=== PATIENT | female | born 1945 | race Hispanic/Latino ===

== ENCOUNTER 2017-02-22 09:06 | Outpatient (CLI) | payer MEDICARE ==
--- NOTE | 2017-02-22 11:57 | Mammography Report ---
BONE DEXA:02/22/17 10:30:00 CLINICAL: Postmenopausal. No comparison. TECHNIQUE: Two site bone DEXA performed on an Hologic scanner. FINDINGS: The average BMD of the lumbar spine L1-L4 is 1.003g/cm squared with a T-score of -0.4 and a Z-score of +1.8. The average BMD of the left hip is 0.788g/cm squared with a T-score of -1.3 and a Z-score of +0.3. The femoral neck BMD is 0.627g/cm squared with a T score of -2.0 and a Z score of -0.1.. IMPRESSION: 1. WHO classification: Normal with average fracture risk based on lumbar spine measurements. 2. WHO classification: Osteopenia with increased fracture risk based on left femoral neck measurements. 3. The FRAX 10 year fracture probability for a major osteoporotic fracture is 11.0%. 4. The FRAX 10 year fracture probability for hip fracture is 2.0%. Note: FRAX version 3.01. Fracture probability calculated for an untreated patient. Fracture probability may be lower if the patient has received treatment. RECOMMENDATION: Clinical correlation and routine screening. DEFINITIONS: BMD = Bone Mineral Density T-score = BMD related to mean peak bone mass of young adult (mean expressed in Standard Deviation) Z-score = Age matched BMD expressed in SD World Health Organization (WHO) Diagnostic Criteria Normal T-score > -1 SD Osteopenia T-score between -1 and -2.4 SD Osteoporosis T-score -2.5 SD or below NOTE: BMD is not the only risk factor for fracture; also consider factors such as the patient's age, risk of falling, previous osteoporotic fracture, family history of osteoporotic fractures, current smoker, and low body weight. All treatment decisions require clinical judgment and consideration of individual patient factors, including patient preferences, comorbidities, previous drug use and risk factors not captured in the FRAX model (e.g. frailty, falls, vitamin D deficiency, increased bone turnover, interval significant decline in BMD). Fracture probability is calculated for an untreated patient. Fracture probability may be lower if the patient has received treatment. Z-scores are not calculated if >80 years of age.
--- NOTE | 2017-02-22 15:34 | Mammography Report ---
BILATERAL DIGITAL SCREENING MAMMOGRAM with CAD: 02/22/17 09:06:00 CLINICAL: Routine screening. COMPARISON:12/16/15 FINDINGS: There are scattered areas of fibroglandular density. No mass, architectural distortion or suspicious calcifications. IMPRESSION: No mammographic evidence of malignancy. BI-RADS CATEGORY: 2 -- Benign RECOMMENDATION: Routine mammographic screening in one year. COMMENT: Patient follow-up letters are generated by our [employer] application.
== END 2017-02-22 09:07 | disposition home or self-care (01) ==
LOC: MAMMO 09:06
PROVIDERS: ATTEND Internal Medicine
DX: Z12.31 Encounter for screening mammogram for malignant neoplasm of breast (principal); M85.88 Other specified disorders of bone density and structure, other site; Z78.0 Asymptomatic menopausal state
CPT/HCPCS: 77080; G0202; 77067

== ENCOUNTER 2019-01-16 07:24 | Day surgery (SDC) | payer MEDICARE ==
[2019-01-16] MEDS ORDERED: SODIUM CHLORIDE 0.9% 500 ML 500 ML IV SCH (08:00)
[2019-01-16 08:12] LABS: Basophils % (Auto) 0.4 % (0.0-1.8); Eosinophils # (Auto) 0.1 K/mm3 (0.0-0.4); Eosinophils % (Auto) 1.6 % (0.0-4.3); Hematocrit 48.8 % (30.3-42.9); Hemoglobin 15.8 gm/dl (10.1-14.3); Lymphocytes # (Auto) 1.3 K/mm3 (1.2-5.4); Lymphocytes % (Auto) 25.8 % (13.4-35.0); Mean Corpuscular HGB Conc 32 % (30-34); Mean Corpuscular Volume 99 fl (79-97); Monocytes # (Auto) 0.4 K/mm3 (0.0-0.8); Monocytes % (Auto) 8.4 % (0.0-7.3); Platelet Count 174 K/mm3 (140-440); Red Blood Count 4.93 M/mm3 (3.65-5.03); Red Cell Distribution Width 15.8 % (13.2-15.2)
[2019-01-16] MEDS ORDERED: methylPREDNISolone Sod Succinate 125 MG/2 ML INJ IV NR (08:15)
[2019-01-16 08:29] LABS: INR 0.94 (0.87-1.13)
[2019-01-16 08:45] LABS: BUN/Creatinine Ratio 23; Blood Urea Nitrogen 14 mg/dL (7-17); Calcium 8.8 mg/dL (8.4-10.2); Hemolysis Index 13
[2019-01-16] MEDS ORDERED: diphenhydrAMINE 50 MG/ML VIAL IV ONE (09:00)
[2019-01-16] MEDS ORDERED: FAMOTIDINE 20 MG/2 ML INJ IV ONE (09:00)
[2019-01-16] MEDS ORDERED: HEPARIN/NS 5000 UNIT/500ML 1,000 ML IR ONE (09:59)
[2019-01-16] MEDS: LIDOCAINE (2%) 20 MG/1 ML VIAL 20 ML MDV INFILTRATI ONE ×2 (10:19→10:27)
[2019-01-16] MEDS: MIDAZOLAM 2 MG/2 ML INJ ONE ×2 (10:19→10:24)
[2019-01-16] MEDS: fentaNYL 100 MCG/2 ML INJ ONE ×2 (10:19→10:24)
[2019-01-16] MEDS: VERAPAMIL 5 MG/2 ML INJ ONE ×2 (10:20→10:29)
[2019-01-16] MEDS: HEPARIN 10,000 UNITS/10 ML VIAL ONE ×2 (10:20→10:29)
[2019-01-16] MEDS: NITROGLYCERIN SYRINGE 3 ML ONE ×2 (10:21→10:29)
[2019-01-16] MEDS ORDERED: traMADol 50 MG TAB PO PRN (10:55)
--- NOTE | 2019-01-16 10:58 | Short Stay Summary ---
Short Stay Documentation Date of service: 01/16/19 - History H&P: obtained from office - Allergies and Medications Current Medications: Allergies shellfish derived Allergy (Severe, Verified 01/17/17 11:30) ANAPHYLACTIC Home Medications Medication Instructions Recorded Confirmed Last Taken Type Aspirin [Adult Aspirin] 81 mg PO DAILY 01/16/19 01/16/19 01/16/19 08:21 History [place]-3 Fatty Acids/Fish Oil [Fish 1,000 mg PO DAILY 01/16/19 01/16/19 01/15/19 History Oil] dilTIAZem [CarDIZEM] 30 mg PO BID 01/16/19 01/16/19 01/15/19 History Active Medications Sodium Chloride (Nacl 0.9% 500 Ml) 500 mls @ 50 mls/hr IV DIRECT ANNIKA Stop: 01/16/19 17:59 Last Admin: 01/16/19 08:53 Dose: 50 mls/hr Documented by: Methylprednisolone Sodium Succinate (Solu-Medrol) 125 mg IV PREOP NR Stop: 01/16/19 11:00 Last Admin: 01/16/19 08:53 Dose: 125 mg Documented by: Tramadol HCl (Ultram) 50 mg PO Q4H PRN PRN Reason: Pain, Mild (1-3) - Brief post op/procedure progress note Date of procedure: 01/16/19 Pre-op diagnosis: sob and pulmonary htn Post-op diagnosis: same Procedure: see report Anesthesia: local Estimated blood loss: none Pathology: none - Disposition Condition at discharge: Poor Disposition: DC-01 TO HOME OR SELFCARE - Discharge Diagnoses (1) Pulmonary HTN Status: Acute (2) Hypertension Status: Chronic Qualifiers: Hypertension type: essential hypertension Qualified Code(s): I10 - Essential (primary) hypertension (3) SOBOE (shortness of breath on exertion) Status: Chronic (4) COPD (chronic obstructive pulmonary disease) Status: Chronic Qualifiers: COPD type: unspecified COPD Qualified Code(s): J44.9 - Chronic obstructive pulmonary disease, unspecified Short Stay Discharge Plan Activity: advance as tolerated Diet: low fat, low cholesterol Wound: keep clean and dry Follow up with: SHI KUMAR MD [Primary Care Provider] - 7 Days
[2019-01-16 13:56] VITALS: BP 169/75
--- NOTE | 2019-01-16 14:23 | Cardiac Catherization Report ---
LEFT AND RIGHT HEART CATHETERIZATION PRIMARY CARE DOCTOR: Dr. Carrol Jain. FEED MILL SUPERVISOR: Dr. Mae. CLINICAL INFORMATION: A 73-year-old female who is a smoker, presents with shortness of breath. An echo was found to have severe RV dilatation, moderate dysfunction. RV pressure load with normal LV function and severe pulmonary hypertension, is here for left and right heart catheterization. Procedure was done with moderate sedation. Total sedation time was 25 minutes. Start 10:25 a.m., finished at 10:50 a.m. DESCRIPTION OF PROCEDURE: Left heart catheterization was performed by the right radial artery, sterile technique, local anesthesia, 6-Polish groin sheath. Right heart catheterization was performed in the right common femoral vein 6-Polish sheath was sewn in. LEFT HEART CATHETERIZATION FINDINGS: Left system engaged with JL3.5 catheter. Left main is large and patent, bifurcates into large LAD that is patent. Diagonal 1 is a medium caliber vessel, patent. Circumflex medium caliber vessel, patent. OM1 and OM2 are small to medium caliber vessel, patent. RCA engaged with JR4, is a large dominant vessel, patent with a medium to large caliber PDA, PLV with multiple branches are patent. LV gram shows normal LV function, LVEDP at 28 mmHg, LV is 150 mmHg. Aortic is 152/89 mmHg. RIGHT HEART CATHETERIZATION: Catheter was successfully wedged and the following findings: Wedge was 28/26 with an average mean of 25 mmHg, PA was 91/42 mmHg, RV was 90/21 mmHg. RA mean was 25 mmHg. AO saturation was 84%, PA saturation 64%, RV saturation 65, and RA 64. The patient's PVR was 497d/s. The patient's cardiac output by Reema was 5.63. Cardiac index was 3.09. There was no step up, step down. A Sherrill catheter was removed. A, 6-Polish groin sheath was discontinued. Manual pressure held. No hematoma, no bleeding. A 6-Polish radial sheath was discontinued. A TR band placed. No hematoma, no bleeding. SUMMARY: Left main patent, LAD patent, diagonal patent, circumflex patent, OM1, OM2 patent, RCA patent, large dominant, normal LV function, LVEDP at 20 mmHg, wedge was 25 mmHg, PA was 91/42 mmHg, RV was 90/21 mmHg. RA 25 mmHg. PVR was 497. Cardiac output 5.63, cardiac index 3.09. The patient has severe pulmonary hypertension with normal coronaries, normal LV function. Further treatment with document control supervisor discussed in detail with the patient and patient's family. JOB# [id number] ZEINAB/HERRERA KAUR
== END 2019-01-16 13:45 | disposition home or self-care (01) ==
LOC: CATHLABREC 07:24
PROVIDERS: ATTEND Internal Medicine
DX: R06.02 Shortness of breath (principal); I27.20 Pulmonary hypertension, unspecified; F17.210 Nicotine dependence, cigarettes, uncomplicated; J44.9 Chronic obstructive pulmonary disease, unspecified; I10 Essential (primary) hypertension; G47.30 Sleep apnea, unspecified; M19.90 Unspecified osteoarthritis, unspecified site; Z98.890 Other specified postprocedural states; Z91.013 Allergy to seafood; Z79.82 Long term (current) use of aspirin
CPT/HCPCS: 36415; 80048; 85025; 85610; 85730; 93005; 93010; 93460; 96374; 96375; 99156; 99157; C1894; J1200; J1644; J2250; J2930; J3010; J7040; Q9967